=== PATIENT | female | born 1970 | race Caucasian/White ===

== ENCOUNTER 2016-08-06 06:27 | Day surgery (SDC) | payer BC ==
[2016-08-05 12:10] VITALS: BMI 29.7
[~2016-08-06 06:27] MED LIST: DEXAMETHASONE SOD PHOSPHATE 10 MG/ML 1 ML VIAL IV ONE; HYDROmorphone 1 MG/ML 1 ML SYRINGE IVP PRN; LACTATED RINGERS 1,000 ML IV SCH; MIDAZOLAM 2 MG/2 ML VIAL IV PRN; ONDANSETRON 4 MG/2 ML VIAL IVP ONE; Pre Op ABX Message 1 EACH MISC MISCELLANE ONE; SCOPOLAMINE 1.5MG/72HR PATCH TRANSDERM ONE
[2016-08-06 06:52] LABS: Glucose,Whole Blood 90 mg/dL (75-99)
[2016-08-06] MEDS ORDERED: LIDOCAINE 1% 20 ML VIAL (10MG/ML) FOR IV START INTRADERMA ONE (06:55)
[2016-08-06] MEDS ORDERED: FERRIC SUBSULFATE (MONSELS) JAR TOPICAL ONE (07:15)
[2016-08-06] MEDS ORDERED: MIDAZOLAM 2 MG/2 ML VIAL ONE (07:49)
[2016-08-06] MEDS ORDERED: LIDOCAINE 1% INJ 10MG/ML (20 ML MDV) ONE (07:49)
[2016-08-06] MEDS ORDERED: fentaNYL (PF) 50 MCG/ML 2 ML AMP ONE (07:49)
[2016-08-06] MEDS ORDERED: KETOROLAC 30 MG/ML 1 ML VIAL ONE (07:49)
[2016-08-06] MEDS ORDERED: PROPOFOL 10 MG/ML 20 ML VIAL IV ONE (07:49)
--- NOTE | 2016-08-06 07:49 | P.HPOB ---
History of Present Illness H&P Date: 08/06/16 Chief Complaint: High-grade squamous intraepithelial lesion Patient is a 46-year-old female with high-grade squamous intraepithelial lesion noted on colposcopy. She is here for a LEEP colposcopy. Risks benefits and alternatives were reviewed with the patient and all questions were answered the patient prior to proceeding to the operating room. Past Medical History Past Medical History: Asthma, Hearing Disorder / Deafness, Thyroid Disorder Additional Past Medical History / Comment(s): HAD ABN CERVICAL BIOPSY RECENTLY; MENSES IRREG. HX ENDOMETRIOSIS. HYPOGLYCEMIC. POSS LOSS OF HEARING. VARICOSE VEINS. History of Any Multi-Drug Resistant Organisms: None Reported Additional Past Surgical History / Comment(s): VARICOSE VEIN STRIPPING. LAPAROSCOPY. Past Anesthesia/Blood Transfusion Reactions: Motion Sickness Past Psychological History: Anxiety, Depression Additional Psychological History / Comment(s): "GETS RASH IF OVERLY ANXIOUS." Smoking Status: Never smoker Past Alcohol Use History: Occasional Past Drug Use History: None Reported - Past Family History Father Family Medical History: Cancer, Deep Vein Thrombosis (DVT) Additional Family Medical History / Comment(s): POSS DVT AFTER HIP SURGERY. SKIN CA Sister(s) Family Medical History: Pulmonary Embolus Medications and Allergies Home Medications Medication Instructions Recorded Confirmed Type Albuterol Inhaler [Ventolin Hfa 1 - 2 puff INHALATION Q6HR PRN 08/05/16 History Inhaler] Albuterol Nebulized [Ventolin 2.5 mg INHALATION DIRECTED PRN 08/05/16 History Nebulized] Ascorbic Acid [Vitamin C] 500 mg PO DAILY 08/05/16 08/06/16 History Beclomethasone Dipropionate [Qnasl] 1 spray NASAL DIRECTED PRN 08/05/1608/06 History Cholecalciferol [Vitamin D3] 1,000 unit PO DAILY 08/05/16 08/06/16 History Levocetirizine Dihydrochloride 5 mg PO DAILY 08/05/16 08/06/16 History [Xyzal] Levothyroxine Sodium [Synthroid] 50 mcg PO DAILY 08/05/16 08/06/16 History Montelukast [Singulair] 10 mg PO DAILY 08/05/16 08/06/16 History Multivitamin/Iron/Folic Acid 1 each PO DAILY 08/05/16 08/06/16 History [Centrum Complete Multivit Tab] Venlafaxine HCl ER [Effexor Xr] 150 mg PO DAILY 08/05/16 08/06/16 History Allergies Allergy/AdvReac Type Severity Reaction Status Date / Time carisoprodol [From Soma] Allergy Rash/Hives Verified 08/06/16 06:57 fluconazole Allergy Rash/Hives Verified 08/06/16 06:57 levofloxacin [From Levaquin] Allergy Rash/Hives Verified 08/06/16 06:57 methenamine Allergy Rash/Hives Verified 08/06/16 06:57 [From Cystex Plus (methenamine-joanna)] Penicillins Allergy Rash/Hives Verified 08/06/16 06:57 sodium salicylate Allergy Rash/Hives Verified 08/06/16 06:57 [From Cystex Plus (methenamine-joanna)] Sulfa (Sulfonamide Allergy Rash/Hives Verified 08/06/16 06:57 Antibiotics) sulfamethoxazole Allergy Rash/Hives Verified 08/06/16 06:57 [From Bactrim] trimethoprim [From Bactrim] Allergy Rash/Hives Verified 08/06/16 06:57 fluoxetine [From Prozac] AdvReac Nausea Verified 08/06/16 06:57 Exam Osteopathic Statement: *. No significant issues noted on an osteopathic structural exam other than those noted in the History and Physical/Consult. - Vital Signs Vital signs: Vital Signs Temp Pulse Resp BP Pulse Ox 08/06/16 06:40 97.6 F 78 16 130/67 98 Intake and Output 08/05/16 08/06/16 08/06/16 22:59 06:59 14:59 Intake Total 300 Balance 300 Intake: IV 300 - OBG Physical Exam Breast: both: normal (no masses) Abdomen: bowel sounds normal, no diffuse tenderness, no bruit present, no guarding noted, no hepatomegaly, no splenomegaly, no mass Vulva: both: normal Vagina: normal moisture, no discharge Cervix: no lesion, no discharge Uterus: normal size, normal contour Adnexa: both: normal Anus/Rectum: normal perianal skin, no rectal mass, no hemorrhoids, heme negative
--- NOTE | 2016-08-06 08:17 | P.OP ---
Date of Procedure: 08/06/16 Preoperative Diagnosis: High grade squamous intraepithelial lesion Postoperative Diagnosis: Same Procedure(s) Performed: LEEP colposcopy Anesthesia: LIA Surgeon: Jd Neely Estimated Blood Loss (ml): 3 Pathology: other (Cervical pieces) Condition: stable Disposition: same day Operative Findings: Large cervix noted Description of Procedure: Patient was taken to the operating suite where a general anesthetic found be adequate. She was prepped and draped in the normal sterile fashion placed in dorsal lithotomy position. Initially a speculum was inserted in the vagina and the cervix was coated with Lugol's. Colposcopy was used to guide this procedure. Posterior piece of the cervix was then dissected to 2 cm loop followed by an anterior piece and then using a 2 cm loop an endocervical hat was created. This tissue was all sent to pathology separately in pieces. Once this was accomplished ball-tipped cautery was used obtain excellent hemostasis and desiccate any potential remaining dysplastic tissue. All incidents were then removed sponge lap and needle counts were all correct 2 and patient was taken to the recovery room in stable and satisfactory condition. Plan - Discharge Summary New Discharge Prescriptions: Acetaminophen-Codeine 300-30mg [Tylenol #3] 1 tab PO Q4H PRN #30 tablet PRN Reason: Pain Ibuprofen [Motrin] 600 mg PO Q6HR PRN #30 tab PRN Reason: Pain Discharge Medication List Albuterol Inhaler [Ventolin Hfa Inhaler] 1 - 2 puff INHALATION Q6HR PRN [History] Albuterol Nebulized [Ventolin Nebulized] 2.5 mg INHALATION DIRECTED PRN 08/05 [History] Ascorbic Acid [Vitamin C] 500 mg PO DAILY 08/05/16 [History] Beclomethasone Dipropionate [Qnasl] 1 spray NASAL DIRECTED PRN 08/05/16 [ History] Cholecalciferol [Vitamin D3] 1,000 unit PO DAILY 08/05/16 [History] Levocetirizine Dihydrochloride [Xyzal] 5 mg PO DAILY 08/05/16 [History] Levothyroxine Sodium [Synthroid] 50 mcg PO DAILY 08/05/16 [History] Montelukast [Singulair] 10 mg PO DAILY 08/05/16 [History] Multivitamin/Iron/Folic Acid [Centrum Complete Multivit Tab] 1 each PO DAILY 07/10 [History] Venlafaxine HCl ER [Effexor Xr] 150 mg PO DAILY 08/05/16 [History] Acetaminophen-Codeine 300-30mg [Tylenol #3] 1 tab PO Q4H PRN #30 tablet [Rx] Ibuprofen [Motrin] 600 mg PO Q6HR PRN #30 tab 08/06/16 [Rx] Follow up Appointment(s)/Referral(s): Jd Neely DO [Doctor of Osteopathic Medicine] - 2 Weeks Patient Instructions/Handouts: *Surgery [facility] - Scopalamine Patch Instructions
[2016-08-06 08:24] VITALS: TEMP 97.2
[2016-08-06 08:46] VITALS: RESP 16
[2016-08-06 09:19] VITALS: BP 122/80; PULSE 74
== END 2016-08-06 10:18 | disposition home or self-care (01) ==
LOC: OR 06:27
PROVIDERS: ATTEND Obstetrics & Gynecology
DX: R87.613 High grade squamous intraepithelial lesion on cytologic smear of cervix (HGSIL) (principal); J45.909 Unspecified asthma, uncomplicated; E07.9 Disorder of thyroid, unspecified; F41.9 Anxiety disorder, unspecified; F32.9 Major depressive disorder, single episode, unspecified; Z79.51 Long term (current) use of inhaled steroids; Z79.899 Other long term (current) drug therapy; Z88.1 Allergy status to other antibiotic agents; Z88.3 Allergy status to other anti-infective agents; Z88.0 Allergy status to penicillin; Z88.2 Allergy status to sulfonamides; Z88.8 Allergy status to other drugs, medicaments and biological substances
CPT/HCPCS: 81025; 57460; J2250; J1100; J2405; J2001; J3010; J1885; J2704; 88305; 88307

== ENCOUNTER → 2016-10-08 | Outpatient (CLI) | payer BC ==
--- NOTE | 2016-10-08 17:19 | US ---
EXAMINATION TYPE: US transvaginal DATE OF EXAM: 10/08/2016 5:04 PM COMPARISON: NONE CLINICAL HISTORY: N93.8 Dysfunctional uterine bleeding. Patient stated had Cervical Biopsy in July 2016 for polyps and since then has had DUB with 2 menses per month; HX of endometriosis with surgery in 2003; TECHNIQUE: Transvaginal (TV) as patient had partially full bladder and chose to have TV US instead Date of LMP: mid August 2016 EXAM MEASUREMENTS: Uterus: 9.3 x 6.1 x 5.0 cm Endometrial Stripe: 1.1cm Right Ovary: 3.36 x 3.2 x 2.0 cm Left Ovary: 2.0 x 2.2 x 1.4 cm TECHNOLOGIST IMPRESSION: 1. Uterus: Anteverted; multiple small Nabothian cysts in CX,=; fluid area in lower CX = 0.7 x 0.4 x 0.8cm 2. Endometrium: thickness wnl for ~Day 30LMP 3. Right Ovary: multiple follicles with largest = 1.8 x 2.1 x 1.8cm 4. Left Ovary: small follicles Spectral, color and waveform Doppler imaging shows good arterial and venous flow within the ovaries ; there is no evidence for ovarian torsion. 5. Bilateral Adnexa: wnl 6. Posterior cul-de-sac: wnl IMPRESSION: There is normal arterial waveform in the ovarian arteries on the color Doppler images. No evidence of torsion. Bilateral follicular-type ovarian cysts. Normal endometrium.
== END ==
LOC: RADUSWWP 16:12
PROVIDERS: ATTEND Obstetrics & Gynecology
DX: N83.02 Follicular cyst of left ovary (principal); N83.01 Follicular cyst of right ovary
CPT/HCPCS: 76830

== ENCOUNTER → 2017-06-20 | Outpatient (CLI) | payer BC ==
--- NOTE | 2017-06-22 09:59 | MM ---
Reason for exam: screening (asymptomatic). Last mammogram was performed 1 year and 3 months ago. History: Patient had first child at age 35. Took hormonal contraceptives for 20 years beginning at age 12. Physical Findings: A clinical breast exam by your physician is recommended on an annual basis and results should be correlated with mammographic findings. MG Screening Mammo w CAD Bilateral CC and MLO view(s) were taken. Prior study comparison: March 15, 2016, bilateral MG screening mammo w CAD. January 02, 2015, bilateral MG screening mammo w CAD. There are scattered fibroglandular densities. No significant changes when compared with prior studies. ASSESSMENT: Negative, BI-RAD 1 RECOMMENDATION: Routine screening mammogram of both breasts in 1 year.
== END | disposition home or self-care (01) ==
LOC: RADMAMWWP 15:24
PROVIDERS: ATTEND Obstetrics & Gynecology
DX: Z12.31 Encounter for screening mammogram for malignant neoplasm of breast (principal)

== ENCOUNTER 2018-01-22 13:26 | Emergency (ER) | payer BC ==
[2018-01-22 13:29] VITALS: BP 141/87; PULSE 81; RESP 18; TEMP 97.9
--- NOTE | 2018-01-22 13:37 | ED ---
General Adult HPI - General Chief complaint: Extremity Injury, Lower Stated complaint: rt foot injury Time Seen by Provider: 01/22/18 13:29 Source: patient, RN notes reviewed Mode of arrival: wheelchair Limitations: no limitations - History of Present Illness Initial comments: This is a 47-year-old female who presents to the emergency department with chief complaint of right foot injury. Patient states that 45 minutes prior to arrival she was cleaning around her camper. She states that she went to move the frame of a [id number] and it fell onto the top part of her right foot. Patient states that she is able to ambulate but has to do so by putting weight on her heel. Denies any other injury or trauma. States that she has been applying ice. Denies fevers or chills, chest pain or shortness breath, abdominal pain, nausea or vomiting. - Related Data Home Medications Medication Instructions Recorded Confirmed Albuterol Inhaler [Ventolin Hfa 1 - 2 puff INHALATION Q6HR PRN 08/05/16 08/06/16 Inhaler] Albuterol Nebulized [Ventolin 2.5 mg INHALATION DIRECTED PRN 08/05/16 Nebulized] Ascorbic Acid [Vitamin C] 500 mg PO DAILY 08/05/16 08/06/16 Beclomethasone Dipropionate [Qnasl] 1 spray NASAL DIRECTED PRN 08/05/1608/06 Cholecalciferol [Vitamin D3] 1,000 unit PO DAILY 08/05/16 08/06/16 Levocetirizine Dihydrochloride 5 mg PO DAILY 08/05/16 08/06/16 [Xyzal] Levothyroxine Sodium [Synthroid] 50 mcg PO DAILY 08/05/16 08/06/16 Montelukast [Singulair] 10 mg PO DAILY 08/05/16 08/06/16 Multivitamin/Iron/Folic Acid 1 each PO DAILY 08/05/16 08/06/16 [Centrum Complete Multivit Tab] Venlafaxine HCl ER [Effexor Xr] 150 mg PO DAILY 08/05/16 08/06/16 Previous Rx's Medication Instructions Recorded Acetaminophen-Codeine 300-30mg 1 tab PO Q4H PRN #30 tablet 08/06/16 [Tylenol #3] Ibuprofen [Motrin] 600 mg PO Q6HR PRN #30 tab 08/06/16 Allergies Allergy/AdvReac Type Severity Reaction Status Date / Time carisoprodol [From Soma] Allergy Rash/Hives Verified 01/22/18 13:29 fluconazole Allergy Rash/Hives Verified 01/22/18 13:29 levofloxacin [From Levaquin] Allergy Rash/Hives Verified 01/22/18 13:29 methenamine Allergy Rash/Hives Verified 01/22/18 13:29 [From Cystex Plus (methenamine-joanna)] Penicillins Allergy Rash/Hives Verified 01/22/18 13:29 sodium salicylate Allergy Rash/Hives Verified 01/22/18 13:29 [From Cystex Plus (methenamine-joanna)] Sulfa (Sulfonamide Allergy Rash/Hives Verified 01/22/18 13:29 Antibiotics) sulfamethoxazole Allergy Rash/Hives Verified 01/22/18 13:29 [From Bactrim] trimethoprim [From Bactrim] Allergy Rash/Hives Verified 01/22/18 13:29 fluoxetine [From Prozac] AdvReac Nausea Verified 01/22/18 13:29 Review of Systems ROS Statement: Those systems with pertinent positive or pertinent negative responses have been documented in the HPI. ROS Other: All systems not noted in ROS Statement are negative. Past Medical History Past Medical History: Asthma, Hearing Disorder / Deafness, Thyroid Disorder Additional Past Medical History / Comment(s): HAD ABN CERVICAL BIOPSY RECENTLY; MENSES IRREG. HX ENDOMETRIOSIS. HYPOGLYCEMIC. POSS LOSS OF HEARING. VARICOSE VEINS. History of Any Multi-Drug Resistant Organisms: None Reported Additional Past Surgical History / Comment(s): VARICOSE VEIN STRIPPING. LAPAROSCOPY. Past Anesthesia/Blood Transfusion Reactions: Motion Sickness Past Psychological History: Anxiety, Depression Smoking Status: Never smoker Past Alcohol Use History: Occasional Past Drug Use History: None Reported - Past Family History Father Family Medical History: Cancer, Deep Vein Thrombosis (DVT) Additional Family Medical History / Comment(s): POSS DVT AFTER HIP SURGERY. SKIN CA Sister(s) Family Medical History: Pulmonary Embolus General Exam - General Exam Comments Initial Comments: General: Awake and alert, well-developed; in no apparent distress. HEENT: Head atraumatic, normocephalic. Pupils are equal, round and reactive to light. Extraocular movements intact. Oropharynx moist without erythema or exudate. Neck: Supple. Normal ROM. Cardiovascular: Regular rate and rhythm. No murmurs, rubs or gallops. Chest symmetrical. Respiratory: Lungs clear to auscultation bilaterally. No wheezes, rales or rhonchi. Normal respiratory effort with no use of accessory muscles. Musculoskeletal: Normal range of motion of the right ankle and foot. There is localized swelling and ecchymosis noted to the dorsal foot just proximal to the toes. This area is tender. Sensation is intact. Pedal pulses are 2+ equal and palpable bilaterally. Skin: [place], warm and dry without rashes or lesions. Neurological: Alert and oriented x3. CN II-XII grossly intact. Speech is fluent and answers are appropriate. No focal neuro deficits. Psychiatric: Normal mood and affect. No overt signs of depression or anxiety noted. Limitations: no limitations Course Vital Signs 01/22/18 13:27 Temperature 97.9 F Pulse Rate 81 Respiratory 18 Rate Blood Pressure 141/87 O2 Sat by Pulse 98 Oximetry Medical Decision Making - Medical Decision Making This is a 47-year-old female who presents to the emergency department with chief complaint of right foot injury. Patient dropped a metal frame on the top part of her right foot. This happened approximately 45 minutes ago. There is a hematoma noted to the distal dorsal aspect of the right foot. Ice is applied. X-ray of the right foot revealed soft tissue swelling, however no evidence for acute fractures or dislocations. Recommended rest, ice, elevation and ibuprofen as needed for pain and inflammation. Patient is in agreement with plan and voices understanding. She is in no acute distress and will be discharged home at this time. All questions answered. - Radiology Data Radiology results: report reviewed, image reviewed Right foot x-ray impression: Soft tissue swelling along the dorsal aspect of the foot without metallic foreign body or acutely displaced fractures. Disposition Clinical Impression: Foot contusion Disposition: HOME SELF-CARE Condition: Good Instructions: Foot Contusion (ED), RICE Therapy (ED) Additional Instructions: Please follow up with primary care provider within 1-2 days. Return to emergency department if symptoms should worsen or any concerns arise. Is patient prescribed a controlled substance at d/c from ED?: No Referrals: Yara Gaitan DO [Primary Care Provider] - 1-2 days Time of Disposition: 14:09
--- NOTE | 2018-01-22 14:03 | XR ---
EXAMINATION TYPE: XR foot complete RT DATE OF EXAM: 01/22/2018 CLINICAL HISTORY: Swelling and trauma TECHNIQUE: Frontal, lateral, and oblique images of the right foot are obtained. COMPARISON: None FINDINGS: There is no acute fracture/dislocation evident in the right foot. The joint spaces in the right foot appear within normal limits. Soft tissue swelling along the dorsal aspect of the foot. IMPRESSION: Soft tissue swelling along the dorsal aspect of the foot without metallic foreign body or acutely displaced fractures.
== END 2018-01-22 14:15 | disposition home or self-care (01) ==
LOC: EC 13:26
DX: S90.31XA Contusion of right foot, initial encounter (principal); E07.9 Disorder of thyroid, unspecified; F32.9 Major depressive disorder, single episode, unspecified; F41.9 Anxiety disorder, unspecified; Z88.0 Allergy status to penicillin; Z88.1 Allergy status to other antibiotic agents; Z88.2 Allergy status to sulfonamides; Z88.8 Allergy status to other drugs, medicaments and biological substances; Z79.899 Other long term (current) drug therapy; W20.8XXA Other cause of strike by thrown, projected or falling object, initial encounter; Y93.89 Activity, other specified
CPT/HCPCS: 99283

== ENCOUNTER → 2018-09-07 | Outpatient (CLI) | payer BC ==
--- NOTE | 2018-09-08 09:11 | MM ---
Reason for exam: screening (asymptomatic). Last mammogram was performed 1 year and 3 months ago. History: Patient had first child at age 35. Took hormonal contraceptives for 20 years beginning at age 12. Physical Findings: A clinical breast exam by your physician is recommended on an annual basis and results should be correlated with mammographic findings. MG Screening Mammo w CAD Bilateral CC and MLO view(s) were taken. Prior study comparison: June 20, 2017, bilateral MG screening mammo w CAD. March 15, 2016, bilateral MG screening mammo w CAD. The breast tissue is heterogeneously dense. This may lower the sensitivity of mammography. No suspicious abnormality. ASSESSMENT: Negative, BI-RAD 1 RECOMMENDATION: Routine screening mammogram of both breasts in 1 year.
== END | disposition home or self-care (01) ==
LOC: RADMAMWWP 17:06
PROVIDERS: ATTEND Obstetrics & Gynecology
DX: Z12.31 Encounter for screening mammogram for malignant neoplasm of breast (principal)
CPT/HCPCS: 77067

== ENCOUNTER → 2020-02-21 | Outpatient (CLI) | payer BC ==
--- NOTE | 2020-02-22 15:05 | MM ---
Reason for exam: screening (asymptomatic). Last mammogram was performed 1 year and 6 months ago. History: Patient had first child at age 35. Took hormonal contraceptives for 20 years beginning at age 12. Physical Findings: A clinical breast exam by your physician is recommended on an annual basis and results should be correlated with mammographic findings. MG Screening Mammo w CAD Bilateral CC and MLO view(s) were taken. Prior study comparison: September 07, 2018, bilateral MG screening mammo w CAD. June 20, 2017, bilateral MG screening mammo w CAD. The breast tissue is heterogeneously dense. This may lower the sensitivity of mammography. No significant changes when compared with prior studies. ASSESSMENT: Benign, BI-RAD 2 RECOMMENDATION: Routine screening mammogram of both breasts in 1 year.
== END | disposition home or self-care (01) ==
LOC: RADMAMWWP 12:22
PROVIDERS: ATTEND Family Medicine
DX: Z12.31 Encounter for screening mammogram for malignant neoplasm of breast (principal)
CPT/HCPCS: 77067

== ENCOUNTER → 2021-03-26 | Outpatient (CLI) | payer BC ==
--- NOTE | 2021-03-27 13:19 | MM ---
Reason for exam: screening (asymptomatic). Last mammogram was performed 1 year and 1 month ago. History: Patient is postmenopausal and had first child at age 35. Took hormonal contraceptives for 20 years beginning at age 12. Physical Findings: A clinical breast exam by your physician is recommended on an annual basis and results should be correlated with mammographic findings. MG Screening Mammo w CAD Bilateral CC and MLO view(s) were taken. Prior study comparison: February 21, 2020, bilateral MG screening mammo w CAD. September 07, 2018, bilateral MG screening mammo w CAD. There are scattered fibroglandular densities. There is no discrete abnormality. No significant changes when compared with prior studies. ASSESSMENT: Negative, BI-RAD 1 RECOMMENDATION: Routine screening mammogram of both breasts in 1 year.
== END | disposition home or self-care (01) ==
LOC: RADMAMWWP 09:05
PROVIDERS: ATTEND Family Medicine
DX: Z12.31 Encounter for screening mammogram for malignant neoplasm of breast (principal); Z78.0 Asymptomatic menopausal state; Z79.3 Long term (current) use of hormonal contraceptives
CPT/HCPCS: 77067

== ENCOUNTER → 2021-05-29 | Outpatient (CLI) | payer BC ==
--- NOTE | 2021-05-29 16:47 | US ---
EXAMINATION TYPE: US pelvic complete DATE OF EXAM: 05/29/2021 COMPARISON: US 2017 CLINICAL HISTORY: R10.31 RLQ abd pain,R10.2 pelvic and perineal pain. Right pelvic pain x 1 month, gr avida 2, para 2 TECHNIQUE: . Transabdominal sonographic images of the pelvis were acquired. Date of LMP: 11/26/2020 EXAM MEASUREMENTS: Uterus: 8.6 x 4.3 x 4.9 cm Endometrial Stripe: 0.7 cm Right Ovary: 3.5 x 2.0 x 1.8 cm Left Ovary: 4.0 x 2.2 x 2.7 cm 1. Uterus: anteverted, slightly heterogeneous 2. Endometrium: appears wnl 3. Right Ovary: wnl 4. Left Ovary: 1.9 x 1.7 x 2.1cm cyst 5. Bilateral Adnexa: wnl 6. Posterior cul-de-sac: wnl IMPRESSION: 1. There is a 2.1 cm left ovarian cyst. 2. Nonspecific heterogeneity to the uterus. No discrete fibroids.
== END ==
LOC: RADUSWWP 15:54
PROVIDERS: ATTEND Family Medicine
DX: N85.8 Other specified noninflammatory disorders of uterus (principal); N83.202 Unspecified ovarian cyst, left side
CPT/HCPCS: 76856

== ENCOUNTER → 2021-07-13 | Outpatient (CLI) | payer BC ==
--- NOTE | 2021-07-13 14:12 | US ---
EXAMINATION TYPE: US pelvic complete DATE OF EXAM: 07/13/2021 COMPARISON: Prior ultrasound May 29, 2021. CLINICAL HISTORY: R10.2 Pelvic pain. known left ovarian cyst seen last month, patient believes she kn ows when cyst ruptured, no pain today TECHNIQUE: TA. Transabdominal sonographic images of the pelvis were acquired Date of LMP: 06/29/2021 EXAM MEASUREMENTS: Uterus: 7.3 x 4.1 x 4.1 cm Endometrial Stripe: 0.6 cm Right Ovary: 2.2 x 1.9 x 2.2 cm Left Ovary: 2.8 x 1.9 x 2.1 cm 1. Uterus: Anteverted wnl 2. Endometrium: wnl 3. Right Ovary: wnl 4. Left Ovary: wnl 5. Bilateral Adnexa: wnl 6. Posterior cul-de-sac: wnl Heterogeneous anteverted uterus without suspicious thickening of the endometrial stripe. No free flui d. Both ovaries identified without suspicious adnexal mass. IMPRESSION: Unremarkable transabdominal pelvic ultrasound currently. Interval resolution of the 2.1 c m left ovarian thin-walled cyst or prominent follicle.
== END | disposition home or self-care (01) ==
LOC: RADUSWWP 13:40
PROVIDERS: ATTEND Family Medicine
DX: N83.202 Unspecified ovarian cyst, left side (principal)
CPT/HCPCS: 76856

== ENCOUNTER → 2022-03-31 | Outpatient (CLI) | payer BC ==
[2022-03-31 18:17] LABS: ALT 14 U/L (8-44); AST 20 U/L (13-35); African American GFR (CKD) 107.1 (60.0-200.0); Albumin 4.4 g/dL (3.8-4.9); Alkaline Phosphatase 71 U/L (41-126); BUN/Creat Ratio 14.36 Ratio (12.00-20.00); Basophils # (A) 0.06 X 10*3/uL (0.00-0.10); Basophils % (A) 1.1 %; Blood Urea Nitrogen 10.7 mg/dL (9.0-27.0); Calcium 9.9 mg/dL (8.7-10.3); Carbon Dioxide 25.3 mmol/L (20.0-27.5); Chloride 105 mmol/L (96-109); Chol/HDL Ratio 3.24 Ratio; Eosinophils # (A) 0.25 X 10*3/uL (0.04-0.35); Eosinophils % (A) 4.5 %; Globulin 2.8 g/dL (1.6-3.3); Glucose 81 mg/dL (70-110); Immature Grans, Automated 0.4 %; LDL Cholesterol,Calculated 115.2 mg/dL (0.0-131.0); Lymphocytes # (A) 2.04 X 10*3/uL (0.90-5.00); Lymphocytes % (A) 36.4 %; MCH 30.2 pg (27.0-32.0); MCHC 32.5 g/dL (32.0-37.0); Mean Platelet Volume 12.9 fL (9.5-12.2); Monocytes % (A) 8.9 %; NRBC Per 100 WBC 0 /100 WBCS (0.0-0.0); Neutrophils # (A) 2.74 X 10*3/uL (1.80-7.70); Neutrophils % (A) 48.7 %; Non-African American GFR(CKD) 92.4 (60.0-200.0); Platelet Count 224 X 10*3/uL (140-440); Potassium 3.9 mmol/L (3.5-5.5); RDW 13.8 % (11.5-14.5); Sodium 141 mmol/L (135-145); Total Protein 7.1 g/dL (6.2-8.2); VLDL Calculation 18.88 mg/dL (5.00-40.00); WBC 5.61 X 10*3/uL (4.50-10.00)
== END | disposition home or self-care (01) ==
LOC: LABWHC1 09:39
PROVIDERS: ATTEND Family Medicine
DX: Z13.220 Encounter for screening for lipoid disorders (principal); E03.9 Hypothyroidism, unspecified
CPT/HCPCS: 36415; 80053; 80061; 84443; 85025

== ENCOUNTER → 2023-01-27 | Outpatient (CLI) | payer BC ==
--- NOTE | 2023-01-28 08:00 | MM ---
Reason for Exam: Screening (asymptomatic). Last mammogram was performed 1 year(s) and 10 month(s) ago. Patient History: Menarche at age 14. First Full-Term at age 35. Late child-bearing (after 30). Postmenopausal. Patient has history of breast feeding. Hormonal Contraceptives for 20 years from age 12 until age 32. Risk Values: Amna 5 year model risk: 1.4%. NCI Lifetime model risk: 10.6%. Prior Study Comparison: 09/07/2018 Bilateral Screening Mammogram, [facility]. 02/21/2020 Bilateral Screening Mammogram, [facility]. 03/26/2021 Bilateral Screening Mammogram, [facility]. Tissue Density: There are scattered fibroglandular densities. Findings: Analyzed By CAD. Pattern appears symmetrical and stable. Within the right breast is a 0.4 cm nodule in the 9:00 outer middle position 6 cm the nipple. This is a change from comparison studies. Additional workup recommended with ultrasound. Diagnostic mammogram may be required to complete the workup. Left breast appear stable. Overall Assessment: Incomplete: need additional imaging evaluation, BI-RAD 0 Management: Diagnostic Breast Ultrasound of the right breast. A negative mammogram report should not preclude additional follow up of suspicious palpable abnormalities. Patient should continue monthly self breast exam. A clinical breast exam by your physician is recommended on an annual basis and results should be correlated with mammographic findings. Electronically signed and approved by: Mike Catalan D.O. Radiologis
== END | disposition home or self-care (01) ==
LOC: RADMAMWWP 12:57
PROVIDERS: ATTEND Family Medicine
DX: Z12.31 Encounter for screening mammogram for malignant neoplasm of breast (principal); Z78.0 Asymptomatic menopausal state
CPT/HCPCS: 77063; 77067

== ENCOUNTER → 2023-02-01 | Outpatient (CLI) | payer BC ==
--- NOTE | 2023-02-01 13:23 | USB ---
Reason for Exam: Additional evaluation requested from abnormal screening. Patient History: Menarche at age 14. First Full-Term at age 35. Late child-bearing (after 30). Postmenopausal. Patient has history of breast feeding. Hormonal Contraceptives for 20 years from age 12 until age 32. Risk Values: Amna 5 year model risk: 1.4%. NCI Lifetime model risk: 10.6%. Technique: Method: Targeted. Prior Study Comparison: 02/21/2020 Bilateral Screening Mammogram, [facility]. 03/26/2021 Bilateral Screening Mammogram, [facility]. 01/27/2023 Bilateral MG 3D screening mammo w/cad, [facility]. Findings: The upper outer quadrant of the right breast, the axilla of the right breast and the retroareolar of the right breast were scanned. Imaged: Ultrasound imaging of: Area of concern. There is a hypoechoic probable cyst at 10:00 6 cm from nipple measuring 6 x 4 x 3 mm. No evidence for organizing fluid collection or mass. Overall Assessment: Probably benign, BI-RAD 3 Management: Diagnostic Breast Ultrasound of the right breast in 6 months. A clinical breast exam by your physician is recommended on an annual basis and results should be correlated with mammographic findings. This exam should not preclude additional follow-up of suspicious palpable abnormalities. Results were given to the patient verbally at the time of exam. Electronically signed and approved by: Jc Rosario DO
== END | disposition home or self-care (01) ==
LOC: RADUSWWP 13:01
PROVIDERS: ATTEND Family Medicine
DX: R92.8 Other abnormal and inconclusive findings on diagnostic imaging of breast (principal); Z78.0 Asymptomatic menopausal state

== ENCOUNTER → 2023-08-10 | Outpatient (CLI) | payer BC ==
--- NOTE | 2023-08-10 13:10 | USB ---
Reason for Exam: Follow-up at short interval from prior study. Patient History: Menarche at age 14. First Full-Term at age 35. Late child-bearing (after 30). Postmenopausal. Patient has history of breast feeding. Hormonal Contraceptives for 20 years from age 12 until age 32. Risk Values: Amna 5 year model risk: 1.4%. NCI Lifetime model risk: 10.4%. Technique: Method: Targeted. Prior Study Comparison: 02/21/2020 Bilateral Screening Mammogram, [facility]. 03/26/2021 Bilateral Screening Mammogram, [facility]. 01/27/2023 Bilateral MG 3D screening mammo w/cad, [facility]. Findings: The lateral section of the breast of the right breast, the axilla of the right breast and the retroareolar of the right breast were scanned. Targeted ultrasound 10:00 right breast including the subareolar region and axilla. The previous oval 6 mm lesion, suggestive of a cyst, seen on prior exam has resolved. Likely mammographic correlate. Overall Assessment: Probably benign, BI-RAD 3 Management: Diagnostic Mammogram of both breasts in 6 months. Total 1 year follow-up right breast and annual exam of the left breast. A clinical breast exam by your physician is recommended on an annual basis and results should be correlated with mammographic findings. This exam should not preclude additional follow-up of suspicious palpable abnormalities. Results were given to the patient verbally at the time of exam. Electronically signed and approved by: Aziza Salazar M.D. Radiologist
== END | disposition home or self-care (01) ==
LOC: RADUSWWP 12:40
PROVIDERS: ATTEND Family Medicine
DX: R92.8 Other abnormal and inconclusive findings on diagnostic imaging of breast (principal); Z78.0 Asymptomatic menopausal state

== ENCOUNTER → 2024-02-22 | Outpatient (CLI) | payer BC ==
--- NOTE | 2024-02-22 14:29 | MM ---
Reason for Exam: Additional evaluation requested from prior study. Last screening mammogram was performed 12 month(s) ago. Patient History: Menarche at age 14. First Full-Term at age 35. Late child-bearing (after 30). Postmenopausal. Patient has history of breast feeding. Hormonal Contraceptives for 20 years from age 12 until age 32. Risk Values: Amna 5 year model risk: 1.4%. NCI Lifetime model risk: 10.4%. Prior Study Comparison: 06/20/2017 Bilateral Screening Mammogram, [facility]. 09/07/2018 Bilateral Screening Mammogram, [facility]. 02/21/2020 Bilateral Screening Mammogram, [facility]. 03/26/2021 Bilateral Screening Mammogram, [facility]. 01/27/2023 Bilateral MG 3D screening mammo w/cad, [facility]. Tissue Density: There are scattered areas of fibroglandular density. Findings: Analyzed By CAD. No mass or distortion. No suspicious parenchymal lesions. Overall Assessment: Negative, BI-RAD 1 Management: Screening Mammogram of both breasts in 1 year. . Results were given to the patient verbally at the time of exam. Patient should continue monthly self-breast exams. A clinical breast exam by your physician is recommended on an annual basis. This exam should not preclude additional follow-up of suspicious palpable abnormalities. Note on Amna scores and lifetime risk: 1. A Amna score greater than 3% is considered moderate risk. If this is the case, consider specialist referral to assess eligibility for a risk reducing agent. 2. If overall lifetime risk for the development of breast cancer is 20% or higher, the patient may qualify for future screening with alternating mammogram and breast MRI. Electronically signed and approved by: Bao Witt M.D. Radiologis
== END | disposition home or self-care (01) ==
LOC: RADMAMWWP 10:52
PROVIDERS: ATTEND Family Medicine
DX: R92.8 Other abnormal and inconclusive findings on diagnostic imaging of breast (principal); R92.323 Mammographic fibroglandular density, bilateral breasts; Z78.0 Asymptomatic menopausal state
CPT/HCPCS: 77062; 77066

== ENCOUNTER → 2024-11-30 | Outpatient (CLI) | payer BC ==
--- NOTE | 2024-11-30 11:23 | XR ---
EXAMINATION TYPE: XR tibia fibula LT DATE OF EXAM: 11/30/2024 11:00 AM INDICATION: Patient age:Female; 54 years old; Reason for study: R22.42 LOCALIZED SWELLING, MASS AND LUMP, LEFT LOW; PHH. pain COMPARISON: None TECHNIQUE: The left tibia/fibula was examined in AP and lateral projections. FINDINGS: No evidence of any acute osseous pathology, joint dislocation, or soft tissue swelling is n oted. No osseous erosions. No periosteal reaction. No radiopaque foreign body. IMPRESSION: No evidence of acute fracture. [facility], , 11/30/2024 11:21 AM
== END | disposition home or self-care (01) ==
LOC: RADXRMAIN 10:42
PROVIDERS: ATTEND Family Medicine
DX: R22.42 Localized swelling, mass and lump, left lower limb (principal)

== ENCOUNTER → 2024-12-06 | Outpatient (CLI) | payer BC ==
--- NOTE | 2024-12-06 09:13 | MR ---
EXAMINATION TYPE: MR shoulder LT wo con DATE OF EXAM: 12/06/2024 7:30 AM COMPARISON: No radiographic correlation available CLINICAL INDICATION: Female, 54 years old with history of M25.512 PAIN IN LEFT SHOULDER, left shoulde r locks x1 year TECHNIQUE: Multiplanar, multisequence imaging of the left shoulder is performed without contrast. FINDINGS: There is severe thickening and inhomogeneous signal within the intracapsular portion of the long head biceps tendon with interstitial tear at the biceps anchor. Extracapsular portion remains a periphera lly situated along the bicipital groove with mild tenosynovial fluid. There is partial tearing throughout the subscapularis tendon with a inhomogeneous signal and prominen t bony irregularity at the lesser tuberosity. There is also intrasubstance change throughout the supraspinatus tendon with bursal sided fraying and mild overlying bursal effusion. Shallow articular sided tearing is present at the anterior to mid giron praspinatus tendon fibers. No high-grade partial or full-thickness tear is identified at this time. C orresponding bony irregularity at the greater tuberosity. No atrophy of the rotator cuff musculature. Moderate degenerative change at the acromioclavicular joint with joint space narrowing and subchondra l marrow edema. Inferior spurring abuts the underlying myotendinous junction of the supraspinatus. There is underlying end-stage glenohumeral joint degenerative change with [id number] abutment. Subc hondral cystic change, reactive subchondral marrow edema particularly on the glenoid side of the join t, mild thinning of the glenoid bone stalk, and some chronic bony remodeling of the humeral head payal cular surface. Bulky inferior humeral head spurring. Diffusely degenerative glenoid labrum with tear superiorly. Mild glenohumeral joint effusion. No Hill-Sachs deformity or os acromiale. No suspicious bone marrow replacement. IMPRESSION: 1. End-stage, [id number] glenohumeral joint osteoarthrosis. Mild thinning of glenoid bone stock. 2. Diffuse rotator cuff tendinosis. Partial tearing throughout the subscapularis tendon. Extensive bu rsal sided fraying throughout the supraspinatus tendon and shallow articular sided tear anterior to m id supraspinatus tendon. No high-grade partial or full thickness tear of either supraspinatus or infr aspinous tendons. No rotator cuff muscle atrophy. 3. Moderate AC joint OA with subacromial impingement. 4. Severe intracapsular long head biceps tendinosis also with an interstitial tear at the biceps anch or. [facility], Workstation: [facility], 12/06/2024 9:11 AM
[2024-12-06 10:15] LABS: Basophils # (A) 0.06 X 10*3/uL (0.00-0.10); Basophils % (A) 1.1 %; Eosinophils # (A) 0.43 X 10*3/uL (0.04-0.35); Eosinophils % (A) 7.7 %; HCT 37.3 % (37.2-46.3); HGB 12.3 g/dL (12.0-15.0); Lymphocytes % (A) 39.1 %; MCH 30.4 pg (27.0-32.0); MCV 92.1 FL (80.0-97.0); Mean Platelet Volume 12.5 FL (9.5-12.2); Monocytes % (A) 12.5 %; NRBC Per 100 WBC 0 X 10*3/uL (0.00-0.01); Neutrophils # (A) 2.22 X 10*3/uL (1.80-7.70); Neutrophils % (A) 39.4 %; Platelet Count 211 X 10*3/uL (140-440); RBC 4.05 X 10*6/uL (4.10-5.20); RDW 12.6 % (11.5-14.5); WBC 5.62 X 10*3/uL (4.50-10.00)
[2024-12-06 10:55] LABS: ALT 19 U/L (8-44); AST 24 U/L (13-35); Albumin 4.2 g/dL (3.8-4.9); Albumin/Globulin Ratio 1.83 Ratio (1.60-3.17); Alkaline Phosphatase 66 U/L (41-126); BUN/Creat Ratio 22.56 Ratio (12.00-20.00); Blood Urea Nitrogen 20.3 mg/dL (9.0-27.0); Calcium 9.4 mg/dL (8.7-10.3); Carbon Dioxide 24.1 mmol/L (21.6-31.8); Chloride 107 mmol/L (96-109); Chol/HDL Ratio 3.16 Ratio; Globulin 2.3 g/dL (1.6-3.3); Glucose 93 mg/dL (70-110); LDL Cholesterol,Calculated 119.7 mg/dL (0.0-131.0); Potassium 4.2 mmol/L (3.5-5.5); Sodium 143 mmol/L (135-145); Total Bilirubin 0.4 mg/dL (0.3-1.2); Total Protein 6.5 g/dL (6.2-8.2); VLDL Calculation 13.54 mg/dL (5.00-40.00)
== END | disposition home or self-care (01) ==
LOC: RADMRIMAIN 06:53
PROVIDERS: ATTEND Family Medicine
DX: S46.012A Strain of muscle(s) and tendon(s) of the rotator cuff of left shoulder, initial encounter (principal); M19.012 Primary osteoarthritis, left shoulder; M25.812 Other specified joint disorders, left shoulder; M67.814 Other specified disorders of tendon, left shoulder
CPT/HCPCS: 80053; 80061; 83721; 84443; 85025